=== PATIENT | female | born 1965 | race Caucasian/White ===

== ENCOUNTER 2020-06-22 17:07 | Emergency (ER) | payer OTHER, SELFPAY ==
--- NOTE | ~2020-06-22 | CT_ITS ---
EXAMINATION: CT BRAIN W/O DATE: 06/22/2020 18:22 INDICATION: Repeated syncope recently TECHNIQUE: Computed tomography (CT) of the head was performed without intravenous contrast. The dose- length product was 605.33 mGy-cm. The mA was adjusted according to patient size. Iterative reconstruc tion technique was employed. COMPARISON: No prior studies for comparison. FINDINGS: Normal brain parenchymal volume for age. Normal orosco-white differentiation. No acute intrac ranial hemorrhage, infarction, mass or mass effect. Mild generalized volume loss. No ventriculomegaly or midline shift. Midline sagittal images demonstrate a normal corpus callosum, c raniovertebral junction and sella turcica. Basilar cisterns are patent. Paranasal sinuses and mastoids are pneumatized. No depressed skull fractures. IMPRESSION: 1. No acute intracranial abnormality. Reviewed, dictated and finalized at location A.
[2020-06-22 17:10] VITALS: BP 136/75; PULSE 87; RESP 16; TEMP 36.9; O2SAT 100
--- NOTE | 2020-06-22 17:23 | ED.SYNCOPE ---
HPI - Syncope General Chief Complaint: Syncope Stated Complaint: ambulance Time Seen by Provider: 06/22/20 17:26 History of Present Illness HPI narrative: 55-year-old female patient is brought into the ER by EMS with complaints of syncopal episode. The patient states that she was talking to a neighbor and as she was getting ready to leave she felt nauseated and the next thing she noticed is that her niece and the neighbor are trying to wake her up and found herself on the ground She states that as they were assisting her to get up she went out again for about 5 seconds or so and then the 3rd time before she completely became awake. She states that she had no feeling of passing out or did not get lightheaded and did not experience any chest pain or headache prior to the episode. Patient states that however the 3rd time and she passed out and woke up she felt some quivering in her chest but no chest pain. She did not experience any vomiting or breathing difficulty. The patient states that she has never passed out in the past. She states that she would doze off when she was in her 30s and was worked up for narcolepsy with sleep studies that turned out to be negative. The patient denies any history of heart disease, hypertension or any strokes. Patient states that upon waking up after passing out she felt fine did not have any period of confusion and was able to recognize all the people that were around her. She does not remember the exact episode of passing out but has good memory prior to and after the syncopal episode. Patient states that she has had history of depression and has not been able to see a doctor and get a refill on her antidepressants since the beginning of the year and is therefore taking Saint Daniel's Wort and valerian root which seems to help her. She has no known allergies to any medications. Related Data Home Medications Medication Instructions Recorded Confirmed Shawn's wort 300 mg PO DAILY 06/22/20 06/22/20 acetaminophen [Tylenol Arthritis] 650 mg PO Q12H PRN 06/22/20 06/22/20 valerian root 100 mg PO DAILY 06/22/20 06/22/20 Allergies Allergy/AdvReac Type Severity Reaction Status Date / Time No Known Allergies Allergy Verified 06/22/20 17:17 Review of Systems Review of Systems: All systems reviewed & are unremarkable except as noted in HPI and below Constitutional: Constitutional: Reports as per HPI, Reports no additional constitutional complaints, Denies chills, Denies fatigue, Denies fever(s) and Denies weakness Eyes: Eyes: Denies no additional eye complaints, Denies change in vision and Denies photophobia ENT: Denies sore throat Cardiovascular: Cardiovascular: Denies chest pain, Denies rapid heart rate, Denies radiating jaw, neck or arm pain and Denies slow heart rate Respiratory: Respiratory: Denies dyspnea and Denies wheezing Gastrointestinal: Gastrointestinal: Denies abdominal pain, Denies bloating, Denies constipation, Denies heartburn, Denies diarrhea, Reports nausea and Denies vomiting Genitourinary: Genitourinary: Denies hematuria and Denies urinary incontinence Musculoskeletal: Musculoskeletal: Denies no additional musculoskeletal complaints Neurologic: Denies confusion, Denies vertigo, Denies dizziness, Reports syncope, Denies headache(s), Denies focal weakness, Denies numbness and Denies weakness Psychiatric: Psychiatric: Denies anxiety, Denies depression and Denies homicidal ideation Endocrine: Endocrine: Denies fatigue, Denies polydipsia and Denies polyuria Hematologic/Lymphatic: Hematologic/Lymphatic: Denies easy bleeding and Denies easy bruising Allergic/Immunologic: Allergic/Immunologic: Denies tongue swelling PMFSH Past Medical History Medical History (Updated 06/22/20 @ 18:56 by Suzette Alaniz MD) Depression Surgical History Surgical History (Updated 06/22/20 @ 18:05 by Suzette Alaniz MD) No pertinent past surgical history Social History Social History (Upd
--- NOTE | 2020-06-22 17:41 | ECG_ITS ---
Measurements Intervals [place] Rate: 77 P: -7 DC: 159 QRS: 5 QRSD: 82 T: 21 QT: 372 QTc: 421 Interpretive Statements SINUS RHYTHM INCOMPLETE RIGHT BUNDLE BRANCH BLOCK LOW QRS VOLTAGE IN PRECORDIAL LEADS BORDERLINE ECG Electronically Signed On 06-23-2020 7:17:57 [employer] OFF[employer] by Edwin Lange D.O.
[2020-06-22 18:12] LABS: Add Urine Microscopic? NO; Appearance Urine Clear (Clear); Bilirubin Urine Negative (Negative); Blood Urine Negative (Negative); Color Urine Yellow (Yellow); Glucose Urine UA Negative (Negative); Ketones Urine Negative (Negative); Leukocyte Esterase Ur Negative LEU/UL (Negative); Nitrate Urine Negative (Negative); Protein Urine Negative (Negative); Specific Grav Ur 1.025 (1.010-1.020); Urobilinogen Urine 0.2 mg/dL (0.2-1.0)
[2020-06-22 18:13] LABS: Basophils Absolute Auto 0.02 K/mm3 (0.00-0.10); Basophils Percent Auto 0.3 % (0.0-1.0); Eosinophils Absolute Auto 0.13 K/mm3 (0.02-0.50); Eosinophils Percent Auto 1.8 % (1.0-6.0); Hematocrit 41.9 % (35.0-49.0); Hemoglobin 14.3 g/dL (12.0-15.0); Immature Granulocyte Absolute 0.05 K/mm3 (0.00-0.00); Immature Granulocyte Percent A 0.7 % (0.0-0.0); Lymphocytes Absolute Auto 1.21 K/mm3 (1.10-4.50); Lymphocytes Percent Auto 16.8 % (18.0-42.0); Mean Corpuscular HGB Conc 34.1 g/dL (32.0-36.0); Mean Corpuscular Hemoglobin 30.4 pg (27.0-31.0); Mean Platelet Volume 11.5 fl (9.2-11.8); Monocytes Absolute Auto 0.33 K/mm3 (0.10-0.90); Monocytes Percent Auto 4.6 % (2.0-11.0); Neutrophils Absolute Auto 5.5 K/mm3 (1.7-7.2); Neutrophils Percent Auto 75.8 % (50.0-70.0); Platelet Count Result 194 K/mm3 (150-420); Red Blood Count 4.71 M/mm3 (4.20-5.40); Red Cell Distribution Width 12.9 % (11.6-14.4); White Blood Count 7.2 K/mm3 (4.8-10.8)
[2020-06-22 18:27] LABS: Alanine Aminotransferase 22 U/L (14-59); Albumin Level 4.1 g/dL (3.4-5.0); Alkaline Phosphatase 64 U/L (46-116); Anion Gap 12 mmol/L (8-16); Aspartate Amino Transferase 11 U/L (15-37); Bilirubin,Total 0.5 mg/dL (0.00-1.00); Blood Urea Nitrogen 15 mg/dL (7-18); Calcium 8.9 mg/dL (8.5-10.1); Carbon Dioxide 26 mmol/L (21-32); Chloride 100 mmol/L (98-108); Estimated Glomerular Filt Rate > 60; Glucose 103 mg/dL (70-99); Osmolality Calculated 286 mOsm/kg (285-295); Potassium 3.9 mmol/L (3.5-5.1); Sodium 138 mmol/L (136-145); Total Protein 7.5 g/dL (6.4-8.2)
[2020-06-22 18:30] VITALS: BP 120/53; PULSE 90
[2020-06-22 18:31] VITALS: BP 142/74; PULSE 94
[2020-06-22 18:33] LABS: Prothrombin Time 10.4 Seconds (9.64-11.0)
[2020-06-22] MEDS: ONDANSETRON HCL ODT 4 MG TABLET (19:30)
[2020-06-22 19:40] VITALS: BP 115/40
--- NOTE | 2020-06-25 13:17 | WPDHOLTEREM ---
Holter/Event Monitor Holter/Event Monitor Date of procedure: 06/22/20 Procedure Type: 48 hour holter monitor Indications: Syncope Conclusion: 1. 48 hour holter monitor on 06/22/20. 2. Underlying rhythm is sinus rhythm. HR range 52-136 bpm; average HR 77 bpm. 3. No premature supraventricular complexes. No supraventricular tachycardia. 4. There is 1 premature ventricular complex. No ventricular tachycardia. 5. No sinoatrial or atrioventricular blocks. No significant pauses greater than 2 seconds. 6. No symptoms available for correlation.
== END 2020-06-22 19:40 | disposition home or self-care (01) ==
PROVIDERS: Emergency Provider Emergency Medicine
DX: R55 Syncope and collapse (principal); F17.200 Nicotine dependence, unspecified, uncomplicated
CPT/HCPCS: 36415; 70450; 80053; 81003; 83735; 85025; 85610; 93005; 93225; 93226; 99283; 99284; A9270

== ENCOUNTER 2020-09-16 09:22 | Outpatient (CLI) | payer OTHER, SELFPAY ==
--- NOTE | ~2020-09-16 | MM_ITS ---
EXAMINATION: MM screening javi BI w florina HISTORY: Screening TECHNIQUE: Craniocaudal and mediolateral oblique 3-D tomosynthesis images were obtained and synthetic 2-D images were generated. CAD analysis was submitted and interpreted. COMPARISON: No prior studies for comparison. BREAST PARENCHYMAL COMPOSITION: There are scattered areas of fibroglandular density. FINDINGS: There is no evidence of suspicious mass, calcification, or architectural distortion to sugg est malignancy in either breast. There has been no suspicious interval change. IMPRESSION: 1. No mammographic evidence of malignancy. 2. Recommend routine screening mammography in one year. BI-RADS Category 1: Negative Reviewed, dictated and finalized at location A. WELDER
== END 2020-09-16 09:23 | disposition home or self-care (01) ==
LOC: CHSIMG 09:24
PROVIDERS: PCP Nurse Practitioner Family; Visit Provider Nurse Practitioner Family
DX: Z12.31 Encounter for screening mammogram for malignant neoplasm of breast (principal)
CPT/HCPCS: 77063; 77067

== ENCOUNTER 2021-07-31 09:41 | Outpatient (CLI) | payer OTHER, SELFPAY ==
[2021-07-31 10:28] LABS: Alanine Aminotransferase 29 U/L (14-59); Alkaline Phosphatase 91 U/L (46-116); Anion Gap 10 mmol/L (8-16); Aspartate Amino Transferase 11 U/L (15-37); Bilirubin,Total 0.5 mg/dL (0.00-1.00); Blood Urea Nitrogen 16 mg/dL (7-18); Calcium 9.4 mg/dL (8.5-10.1); Carbon Dioxide 31 mmol/L (21-32); Chloride 104 mmol/L (98-108); Cholesterol 229 mg/dL (0-200); Estimated Glomerular Filt Rate > 60; Glucose 93 mg/dL (70-99); HDL Direct 38 mg/dL (40-60); LDL Cholesterol Calculated 160 mg/dL (<130); Osmolality Calculated 301 mOsm/kg (285-295); Sodium 145 mmol/L (136-145); Total Protein 7.7 g/dL (6.4-8.2); Triglycerides 156 mg/dL (0-150)
== END 2021-07-31 09:42 | disposition home or self-care (01) ==
LOC: CHSLAB 09:42
PROVIDERS: PCP Nurse Practitioner Family; Visit Provider Nurse Practitioner Family
DX: Z00.00 Encounter for general adult medical examination without abnormal findings (principal)
CPT/HCPCS: 36415; 80053; 80061

== ENCOUNTER 2022-02-05 09:30 | Outpatient (CLI) | payer OTHER, SELFPAY ==
[2022-02-05 10:07] LABS: Alanine Aminotransferase 35 U/L (14-59); Albumin Level 3.9 g/dL (3.4-5.0); Alkaline Phosphatase 96 U/L (46-116); Anion Gap 7 mmol/L (8-16); Aspartate Amino Transferase 13 U/L (15-37); Bilirubin,Total 0.4 mg/dL (0.00-1.00); Blood Urea Nitrogen 18 mg/dL (7-18); Calcium 9.2 mg/dL (8.5-10.1); Carbon Dioxide 28 mmol/L (21-32); Chloride 105 mmol/L (98-108); Cholesterol 231 mg/dL (0-200); Estimated Glomerular Filt Rate > 60; Glucose 108 mg/dL (70-99); HDL Direct 40 mg/dL (40-60); LDL Cholesterol Calculated 159 mg/dL (<130); Osmolality Calculated 292 mOsm/kg (285-295); Potassium 3.9 mmol/L (3.5-5.1); Sodium 140 mmol/L (136-145); Total Protein 8.2 g/dL (6.4-8.2); Triglycerides 162 mg/dL (0-150)
[2022-02-05 13:42] LABS: Hemoglobin A1C 5.4 % (<5.7)
== END 2022-02-05 09:31 | disposition home or self-care (01) ==
LOC: CHSLAB 09:31
PROVIDERS: PCP Nurse Practitioner Family; Visit Provider Nurse Practitioner Family
DX: E78.5 Hyperlipidemia, unspecified (principal); R73.09 Other abnormal glucose
CPT/HCPCS: 36415; 80053; 80061; 83036

== ENCOUNTER 2022-02-06 14:02 | Outpatient (CLI) | payer OTHER, SELFPAY ==
--- NOTE | ~2022-02-06 | MM_ITS ---
EXAMINATION: MM screening javi BI w florina HISTORY: Screening TECHNIQUE: Craniocaudal and mediolateral oblique 3-D tomosynthesis images were obtained and synthetic 2-D images were generated. CAD analysis was submitted and interpreted. COMPARISON: 09/16/2020. BREAST PARENCHYMAL COMPOSITION: There are scattered areas of fibroglandular density. FINDINGS: There is no evidence of suspicious mass, calcification, or architectural distortion to sugg est malignancy in either breast. There has been no suspicious interval change. IMPRESSION: 1. No mammographic evidence of malignancy. 2. Recommend routine screening mammography in one year. BI-RADS Category 1: Negative Reviewed, dictated and finalized at location A.
== END 2022-02-06 14:03 | disposition home or self-care (01) ==
LOC: CHSIMG 14:02
PROVIDERS: PCP Nurse Practitioner Family; Visit Provider Nurse Practitioner Family
DX: Z12.31 Encounter for screening mammogram for malignant neoplasm of breast (principal)
CPT/HCPCS: 77063; 77067

== ENCOUNTER 2022-04-20 01:19 | Day surgery (SDC) | payer OTHER, SELFPAY ==
[2022-04-07 13:47] VITALS: BMI 38.5
--- NOTE | 2022-04-20 09:29 | WPDANESEPPF ---
Anes - Initial Pre Proc Eval Procedure: Operation Date: 04/20/22 10:45 Proposed Procedures p Screening Colonoscopy - Shiva Harris MD Date/Time: 04/20/22 09:29 Surgeon: Shiva Harris MD Pre Op Diagnosis: neoplasm screening Patient Data Age: 57 Gender: F Height: 1.65 m Weight: 105 kg Allergies Allergy/AdvReac Type Severity Reaction Status Date / Time No Known Allergies Allergy Verified 04/20/22 09:26 Home Medications Medication Instructions Recorded Confirmed Type cyclobenzaprine 10 mg tablet See Rx Instructions .Route 08/13/21 04/20/22 Rx .COMPLEX #90 tabs furosemide 20 mg tablet See Rx Instructions .Route 12/15/21 04/20/22 Rx .COMPLEX #90 tabs sertraline 50 mg tablet See Rx Instructions .Route 02/03/22 04/20/22 Rx .COMPLEX #90 tabs calcium-vitamin D3-vitamin K 500 tablet PO 02/05/22 History mg-1,000 unit-40 mcg chewable tablet multivit with 1 tablet PO DAILY 02/05/22 04/20/22 History vdijyitp-tbvx-VZ-lutein 8 mg iron-400 mcg-300 mcg tablet (Centrum Silver Women) omega 4-evr-xwv-fish oil 100 cap PO 02/05/22 History mg-160 mg-1,000 mg capsule (Fish Oil) meloxicam 15 mg tablet See Rx Instructions .Route 03/09/22 04/20/22 Rx .COMPLEX #90 tabs atorvastatin 20 mg tablet See Rx Instructions .Route 04/06/22 04/20/22 Rx .COMPLEX #30 tabs famotidine 20 mg tablet See Rx Instructions .Route 04/06/22 04/20/22 Rx .COMPLEX #30 tabs Daily Probiotic 1 cap PO DAILY 04/07/22 04/20/22 History Patient hx anesthesia problems: none Family hx anesthesia problems: none Results Review: All pre-operative results and documents have been reviewed as part of the pre-operative evaluation. [facility] Past Medical History Medical History Anxiety Depression Edema Fibromyalgia Guillain-[place] syndrome Tobacco dependence Surgical History Surgical History History of left knee surgery 2015: LTKA Social History Social History Smoking packs per day: 0.5 Smoking cigarettes per day: 10.0 Smoking status: Current every day smoker Tobacco type: cigarettes Alcohol intake: never Substance use: never Substance use type: does not use Living arrangements: alone Additional living arrangements comments: Family close by Spiritual care concerns: No Anes - Eval Final PreProcedure Day of Procedure 04/20/22 09:29 Patient weight: obese Heart: regular rate and rhythm Lungs: clear to auscultation and normal air movement Airway: Mallampati scale class II Neurological: alert and oriented Last oral intake: >/= 8 hours ASA classification: III Emergent: no Anesthetic plan: proceed Anesthesia type and monitoring: general GIVS Results Review: All pre-operative results and documents have been reviewed as part of the pre-operative evaluation. Informed Consent: The patient's anesthetic plan and its attendant risks and benefits were discussed with the patient/family/POA. Questions were solicited and answers provided to the satisfaction of the patient/family/POA.
[2022-04-20 09:31] VITALS: BP 133/87; PULSE 85; RESP 16; TEMP 36.1; O2SAT 99; BMI 38.4
[2022-04-20] MEDS: LACTATED RINGERS 1,000 ML 150 ML IV CONT (09:40)
--- NOTE | 2022-04-20 09:56 | PM.HPGS ---
History of Present Illness History of Present Illness Consent: Risks, benefits, and alternatives have been discussed and questions answered. Patient agrees to proceed with procedure. Chief complaint: neoplasm screening Narrative: Flora Marcos is a 57 year old female with colon polyp about 3 years ago Review of Systems Constitutional: Constitutional: Denies headache(s) and Denies weakness Eyes: Eyes: Denies blurry vision ENT: Reports Normal hearing present, Denies headache(s) and Denies neck pain Cardiovascular: Cardiovascular: Denies chest pain and Denies dyspnea Respiratory: Respiratory: Denies dyspnea Gastrointestinal: Gastrointestinal: Reports no additional gastrointestinal complaints Genitourinary: Genitourinary: Denies dysuria Musculoskeletal: Musculoskeletal: Denies neck pain Integumentary/Breasts: Skin/Breast: Denies dry skin Neurologic: Reports Normal hearing present, Denies headache(s) and Denies weakness Psychiatric: Psychiatric: Denies anxiety Endocrine: Endocrine: Denies change in body appearance Hematologic/Lymphatic: Hematologic/Lymphatic: Denies easy bleeding Allergic/Immunologic: Allergic/Immunologic: Denies urticaria PMFSH Past Medical History Medical History Anxiety Depression Edema Fibromyalgia Guillain-[place] syndrome Tobacco dependence Surgical History Surgical History History of left knee surgery 2015: KA Social History Social History Smoking packs per day: 0.5 Smoking cigarettes per day: 10.0 Smoking status: Current every day smoker Tobacco type: cigarettes Alcohol intake: never Substance use: never Substance use type: does not use Living arrangements: alone Additional living arrangements comments: Family close by Spiritual care concerns: No Meds Home Medications and Allergies Home Medications Medication Instructions Recorded Confirmed Type cyclobenzaprine 10 mg tablet See Rx Instructions .Route 08/13/21 04/20/22 Rx .COMPLEX #90 tabs furosemide 20 mg tablet See Rx Instructions .Route 12/15/21 04/20/22 Rx .COMPLEX #90 tabs sertraline 50 mg tablet See Rx Instructions .Route 02/03/22 04/20/22 Rx .COMPLEX #90 tabs calcium-vitamin D3-vitamin K 500 tablet PO 02/05/22 History mg-1,000 unit-40 mcg chewable tablet multivit with 1 tablet PO DAILY 02/05/22 04/20/22 History yyetphxe-sztw-GW-lutein 8 mg iron-400 mcg-300 mcg tablet (Centrum Silver Women) omega 0-kyg-fkc-fish oil 100 cap PO 02/05/22 History mg-160 mg-1,000 mg capsule (Fish Oil) meloxicam 15 mg tablet See Rx Instructions .Route 03/09/22 04/20/22 Rx .COMPLEX #90 tabs atorvastatin 20 mg tablet See Rx Instructions .Route 04/06/22 04/20/22 Rx .COMPLEX #30 tabs famotidine 20 mg tablet See Rx Instructions .Route 04/06/22 04/20/22 Rx .COMPLEX #30 tabs Daily Probiotic 1 cap PO DAILY 04/07/22 04/20/22 History Allergies Allergy/AdvReac Type Severity Reaction Status Date / Time No Known Allergies Allergy Verified 04/20/22 09:26 Vital Signs Vital Signs - 24 hr 04/20/22 09:31 Temperature 97.0 F L Pulse Rate 85 Respiratory Rate 16 Blood Pressure 133/87 Pulse Oximetry 99 Oxygen Delivery Room Air Exam Const: General: comfortable and no acute distress HENMT: General nose exam: Normal nares present Eyes: General: appearance normal, both eyes and all related structures Neck: Neck: no JVD Resp: Auscultation: clear to auscultation bilaterally Cardio: Rate: regular rate Rhythm: regular rhythm GI: Inspection: non-distended GI Palp: Yes Soft to palpation Skin: General skin exam: normal color Neuro: General: gait normal Speech: normal speech Extrem: General: normal to inspection Psych: Mental Status: mental status grossly normal As
[2022-04-20 10:15] VITALS: BP 125/81; PULSE 79; RESP 19; O2SAT 98
[2022-04-20 10:25] VITALS: BP 130/82; PULSE 75; RESP 19; O2SAT 100
[2022-04-20 10:35] VITALS: BP 133/75; PULSE 72; RESP 18; O2SAT 100
== END 2022-04-20 10:38 | disposition home or self-care (01) ==
PROVIDERS: PCP Nurse Practitioner Family; Visit Provider Internal Medicine Gastroenterology
PROC: 0DJD8ZZ Inspection of Lower Intestinal Tract, Via Natural or Artificial Opening Endoscopic (ICD-10-PCS; CPT 45378; principal; 2022-04-20 10:45)
DX: Z12.11 Encounter for screening for malignant neoplasm of colon (principal); D12.2 Benign neoplasm of ascending colon; K64.8 Other hemorrhoids; F41.9 Anxiety disorder, unspecified; F32.A Depression, unspecified; M79.7 Fibromyalgia; G61.0 Guillain-Barre syndrome; F17.210 Nicotine dependence, cigarettes, uncomplicated; E66.9 Obesity, unspecified; Z68.38 Body mass index [BMI] 38.0-38.9, adult
CPT/HCPCS: 45385; 88305; J2704; J7120